=== PATIENT | male | born 1990 | race Caucasian/White ===

== ENCOUNTER 2023-04-10 01:17 | Emergency (ER) | payer OTHER ==
[~2023-04-10] VITALS: Ht 177.8 cm; Wt 77.3 kg
[2023-04-10 01:21] VITALS: BP 125/83; PULSE 129; RESP 18; TEMP 98.5; O2SAT 98
[2023-04-10] MEDS ORDERED: LIDOcaine 1% W/epiNEPHrine 1:200,000 10ml vial IJ STA (02:25)
[2023-04-10] MEDS ORDERED: LIDOCAINE 1%/EPI 1:100,000 inj. 10 ML multi-dose vial IJ STA (02:27)
[2023-04-10] MEDS ORDERED: DOXY-457 PO (02:55)
== END 2023-04-10 03:17 | disposition home or self-care (01) ==
LOC: ER 01:18
DX: L03.011 Cellulitis of right finger (principal)
CPT/HCPCS: 26011; 99284; J3490